=== PATIENT | female | born 1960 | race Caucasian/White ===

== ENCOUNTER 2017-03-20 07:45 | Emergency (ER) | payer OTHER ==
[2017-03-20] MEDS ORDERED: KETOROLAC 30 MG/ML 1 ML VIAL IVP STA (08:12)
[2017-03-20] MEDS ORDERED: METOCLOPRAMIDE 5 MG/ML 2 ML VIAL IVP STA (08:12)
--- NOTE | 2017-03-20 08:15 | ED ---
General Adult HPI - General Chief complaint: Abdominal Pain Stated complaint: Abd pain Time Seen by Provider: 03/20/17 08:09 Source: patient, RN notes reviewed Mode of arrival: ambulatory Limitations: no limitations - History of Present Illness Initial comments: Patient is a pleasant 57-year-old female presenting to the emergency department complaining of abdominal discomfort. Onset of symptoms was last night. Patient has been up most of the night with pain and vomiting. Patient still has some nausea. Patient has had some chills. No fever. Patient may have had similar symptoms a year ago however was short-lived. Discomfort is moderate. Discomfort is right upper quadrant and does radiate towards the back as well as epigastrium. Patient did have ice cream and macaroni and cheese prior to going to bed last night. - Related Data Home Medications Medication Instructions Recorded Confirmed Cholecalciferol [Vitamin D3] 1,000 unit PO DAILY 06/23/16 06/23/16 Glucosamine-Chondr 500-400Mg 1 tab PO DAILY 06/23/16 06/23/16 Multivitamins, Thera [Multivitamin] 1 tab PO DAILY 06/23/16 06/23/16 [place]-3 Fatty Acids/Fish Oil [Fish 1 cap PO DAILY 06/23/16 06/23/16 Oil 1,000 mg Softgel] Vitamin E 100 unit PO DAILY 06/23/16 06/23/16 Previous Rx's Medication Instructions Recorded Ibuprofen [Motrin] 600 mg PO Q8HR PRN #30 tab 06/23/16 Hydrocodone/Acetaminophen [[place] 2 each PO Q6HR PRN #20 tab 03/20/17 5-325] Ondansetron Odt [Zofran Odt] 4 mg PO Q8HR PRN #10 tab 03/20/17 Allergies Allergy/AdvReac Type Severity Reaction Status Date / Time Sulfa (Sulfonamide Allergy Rash/Hives Verified 03/20/17 07:49 Antibiotics) Review of Systems ROS Statement: Those systems with pertinent positive or pertinent negative responses have been documented in the HPI. ROS Other: All systems not noted in ROS Statement are negative. Constitutional: Reports: chills. Denies: fever Eyes: Denies: eye pain ENT: Denies: ear pain Respiratory: Denies: cough Cardiovascular: Denies: chest pain Endocrine: Denies: fatigue Gastrointestinal: Reports: abdominal pain, nausea, vomiting Genitourinary: Denies: dysuria Musculoskeletal: Denies: arthralgia Skin: Denies: rash Neurological: Denies: weakness Past Medical History Past Medical History: Hearing Disorder / Deafness, Hyperlipidemia, Hypertension History of Any Multi-Drug Resistant Organisms: None Reported Past Surgical History: Ear Surgery Additional Past Surgical History / Comment(s): oral surgery, plantar faciitis Past Psychological History: No Psychological Hx Reported Smoking Status: Never smoker Past Alcohol Use History: Occasional Past Drug Use History: None Reported General Exam Limitations: no limitations General appearance: alert, in no apparent distress Head exam: Present: atraumatic Eye exam: Present: normal appearance, PERRL ENT exam: Present: normal oropharynx Neck exam: Present: normal inspection Respiratory exam: Present: normal lung sounds bilaterally Cardiovascular Exam: Present: regular rate, normal rhythm Expanded Peripheral pulses: 2+: Dorsalis Pedis (R), Dorsalis Pedis (L) GI/Abdominal exam: Present: soft, tenderness (Right upper quadrant). Absent: distended, guarding, rebound, rigid Extremities exam: Present: normal inspection. Absent: pedal edema, calf tenderness Back exam: Present: normal inspection. Absent: tenderness, CVA tenderness (R) Neurological exam: Present: alert Psychiatric exam: Present: normal affect, normal mood Skin exam: Absent: rash Course Vital Signs 03/20/17 07:46 Temperature 98.2 F Pulse Rate 88 Respiratory 20 Rate Blood Pressure 168/94 O2 Sat by Pulse 98 Oximetry Medical Decision Making - Medical Decision Making Patient reevaluated and resting comfortably in bed. Patient states discomfort is only 3/10 and is comfortable with discharge. Case was discussed in detail with Dr. Jackson including ultrasound reports. He does feel comfortable discharging patient and will follow-up Wednesday. - Lab Data Result diagrams: 03/20/17 08:03 03/20/17 08:03 Lab Results 03/20/17 03/20/17 03/20/17 Range/Units 08:03 08:03 08:03 WBC 9.5 (3.8-10.6) k/uL RBC 5.10 (3.80-5.40) m/uL Hgb 14.9 (11.4-16.0) gm/dL Hct 45.9 (34.0-46.0) % MCV 90.0 (80.0-100.0) fL MCH 29.3 (25.0-35.0) pg MCHC 32.6 (31.0-37.0) g/dL RDW 13.3 (11.5-15.5) % Plt Count 281 (150-450) k/uL Neutrophils % 86 % Lymphocytes % 11 % Monocytes % 2 % Eosinophils % 0 % Basophils % 1 % Neutrophils # 8.2 H (1.3-7.7) k/uL Lymphocytes # 1.0 (1.0-4.8) k/uL Monocytes # 0.2 (0-1.0) k/uL Eosinophils # 0.0 (0-0.7) k/uL Basophils # 0.1 (0-0.2) k/uL PT 10.4 (9.0-12.0) sec INR 1.0 (<1.1) APTT 24.4 (22.0-30.0) sec Sodium 141 (137-145) mmol/L Potassium 4.1 (3.5-5.1) mmol/L Chloride 104 (98-107) mmol/L Carbon Dioxide 26 (22-30) mmol/L Anion Gap 11 mmol/L BUN 24 H (7-17) mg/dL Creatinine 1.20 H (0.52-1.04) mg/dL Est GFR (MDRD) Af Amer 57 (>60 ml/min/1.73 sqM) Est GFR (MDRD) Non-Af 47 (>60 ml/min/1.73 sqM) Glucose 137 H (74-99) mg/dL Calcium 9.7 (8.4-10.2) mg/dL Total Bilirubin 0.6 (0.2-1.3) mg/dL AST 19 (14-36) U/L ALT 29 (9-52) U/L Alkaline Phosphatase 52 (38-126) U/L Total Protein 8.1 (6.3-8.2) g/dL Albumin 4.7 (3.5-5.0) g/dL Amylase 95 (30-110) U/L Lipase 202 (23-300) U/L - Radiology Data Radiology results: report reviewed (Ultrasound does show evidence of gallstones. Possible cystic duct obstruction.), image reviewed (KUB shows no acute process) Disposition Clinical Impression: Cholecystitis Disposition: HOME SELF-CARE Condition: Stable Instructions: Cholecystitis (ED), Biliary Colic (ED) Additional Instructions: Please follow-up Wednesday with Dr. jackson. Return for fever, uncontrolled pain, uncontrolled vomiting, worsening symptoms or other concerns. Prescriptions: Hydrocodone/Acetaminophen [[place] 5-325] 2 each PO Q6HR PRN #20 tab PRN Reason: Pain Ondansetron Odt [Zofran Odt] 4 mg PO Q8HR PRN #10 tab PRN Reason: Nausea Referrals: Faustino Muniz MD [Primary Care Provider] - 1-2 days Niya Jackson MD [STAFF PHYSICIAN] - 1-2 days Time of Disposition: 10:38
[2017-03-20 08:55] LABS: Basophils # (A) 0.1 k/uL (0-0.2); Basophils % (A) 1 %; CHCM 33.5; Eosinophils % (A) 0 %; HCT 45.9 % (34.0-46.0); HDW 2.24; HGB 14.9 gm/dL (11.4-16.0); Luc # (Auto) 0.07; Luc % (Auto) 1; Lymphocytes % (A) 11 %; MCH 29.3 pg (25.0-35.0); MCHC 32.6 g/dL (31.0-37.0); Mean Platelet Volume 7.2; Monocytes # (A) 0.2 k/uL (0-1.0); Monocytes % (A) 2 %; Neutrophils # (A) 8.2 k/uL (1.3-7.7); Neutrophils % (A) 86 %; RDW 13.3 % (11.5-15.5); WBC 9.5 k/uL (3.8-10.6); WBC (Perox) 9.46
[2017-03-20 09:03] LABS: Calcium 9.7 mg/dL (8.4-10.2); Potassium 4.1 mmol/L (3.5-5.1); Total Bilirubin 0.6 mg/dL (0.2-1.3); Total Protein 8.1 g/dL (6.3-8.2)
[2017-03-20 09:05] LABS: Partial Thromboplastin Time 24.4 sec (22.0-30.0)
[2017-03-20 09:07] LABS: Prothrombin Time 10.4 sec (9.0-12.0)
--- NOTE | 2017-03-20 09:21 | US ---
EXAMINATION TYPE: US gallbladder DATE OF EXAM: 03/20/2017 8:53 AM COMPARISON: NONE CLINICAL HISTORY: Pain. in ER for ruq/epigastric pain; in active pain at the time of the exam; exam limitations due to pt's reduced ability to cooperate EXAM MEASUREMENTS: Liver Length: 16.7 cm Gallbladder Wall: 0.2 cm CBD: 0.5 cm Right Kidney: 9.1 x 3.7 x 4.5 cm Pancreas: head wnl, neck/body and tail gassed out Liver: There is some limited penetration of the liver by the ultrasound being, echotexture appears s omewhat coarse Gallbladder: seen with a 1.5cm shadowing stone adjacent to the gb neck; multiple changes in position --unable to move stone Evidence for sonographic Ge's sign: yes, very tender CBD: wnl Right Kidney: wnl There is no ascites IMPRESSION: Cholelithiasis, correlate for possible cystic duct obstruction. There may be fatty infilt ration of the liver. Some limitations in exam.
--- NOTE | 2017-03-20 09:52 | XR ---
Abdomen HISTORY: Abdominal pain Frontal view of the abdomen on 2 images No comparisons Lung bases are clear. There is no bowel obstruction or pneumoperitoneum. Probable phleboliths in the pelvis. Bone mineralization is normal. IMPRESSION: Nonobstructive bowel gas pattern
[2017-03-20 11:09] VITALS: BP 153/94; PULSE 100; RESP 16; TEMP 98.7
== END 2017-03-20 11:16 | disposition home or self-care (01) ==
LOC: EC 07:45
DX: K81.9 Cholecystitis, unspecified (principal); Z79.899 Other long term (current) drug therapy; Z88.2 Allergy status to sulfonamides
CPT/HCPCS: 36415; 80053; 82150; 83690; 85025; 85610; 85730; 74000; 76705; 99284; 96374; 96375; J2765; J1885

== ENCOUNTER → 2017-04-16 | Outpatient (CLI) | payer OTHER ==
[2017-04-16 13:11] LABS: ALT 29 U/L (9-52); AST 22 U/L (14-36); Alkaline Phosphatase 47 U/L (38-126); Anion Gap 9 mmol/L; Blood Urea Nitrogen 20 mg/dL (7-17); Calcium 9.6 mg/dL (8.4-10.2); Carbon Dioxide 28 mmol/L (22-30); Chloride 106 mmol/L (98-107); Glucose 91 mg/dL (74-99); Non-African American GFR(MDRD) 58 (>60 ml/min/1.73 sqM); Potassium 4.4 mmol/L (3.5-5.1); Sodium 143 mmol/L (137-145); Total Bilirubin 0.7 mg/dL (0.2-1.3); Total Protein 7.3 g/dL (6.3-8.2)
== END | disposition home or self-care (01) ==
LOC: LABWHC1 12:22
PROVIDERS: ATTEND Family Medicine
DX: E78.5 Hyperlipidemia, unspecified (principal)
CPT/HCPCS: 36415; 80053

== ENCOUNTER → 2017-05-24 | Outpatient (CLI) | payer OTHER ==
[2017-05-24 14:53] LABS: ALT 33 U/L (9-52); AST 20 U/L (14-36); Alkaline Phosphatase 46 U/L (38-126); Anion Gap 11 mmol/L; Blood Urea Nitrogen 20 mg/dL (7-17); Calcium 9.9 mg/dL (8.4-10.2); Carbon Dioxide 27 mmol/L (22-30); Chloride 103 mmol/L (98-107); Cholesterol 181 mg/dL (<200); Glucose 93 mg/dL (74-99); HDL Cholesterol 57 mg/dL (40-60); Non-African American GFR(MDRD) 52 (>60 ml/min/1.73 sqM); Potassium 4.2 mmol/L (3.5-5.1); Sodium 141 mmol/L (137-145); Total Bilirubin 0.9 mg/dL (0.2-1.3); Total Protein 7.5 g/dL (6.3-8.2); Triglycerides 119 mg/dL (<150)
== END | disposition home or self-care (01) ==
LOC: LABWHC1 13:51
PROVIDERS: ATTEND Family Medicine
DX: E78.5 Hyperlipidemia, unspecified (principal)
CPT/HCPCS: 36415; 80053; 80061

== ENCOUNTER → 2017-06-25 | Outpatient (CLI) | payer OTHER ==
--- NOTE | 2017-06-25 10:42 | US ---
EXAMINATION TYPE: US abdomen complete DATE OF EXAM: 06/25/2017 COMPARISON: US gallbladder Mar 20 2017 CLINICAL HISTORY: R10.9 ABD PAIN; on Liptor; LLQ pain. EXAM MEASUREMENTS: Liver Length: 16.8 cm Gallbladder Wall: 0.2 cm CBD: 0.3 cm Spleen: 8.9 cm Right Kidney: 10.5 x 5.3 x 3.3 cm Left Kidney: 9.8 x 5.0 x 4.7 cm Pancreas: Tail obscured by overlying bowel gas Liver: coarse appearance ?? Gallbladder: mobile, multiple and shadowing stones are noted Evidence for sonographic Ge's sign: No CBD: wnl Spleen: wnl Right Kidney: No hydronephrosis or masses seen Left Kidney: No hydronephrosis or masses seen Upper IVC: wnl Abd Aorta: wnl Visualized pancreas is within normal limits. Visualized liver is fairly homogeneous in appearance on images saved without intrahepatic mass or intrahepatic ductal dilatation. Gallstones are redemonstrat ed without abnormal surrounding fluid or wall thickening. IMPRESSION: Gallstones redemonstrated without secondary ultrasound evidence for acute cholecystitis.
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
== END | disposition home or self-care (01) ==
LOC: RADUSWWP 08:51
PROVIDERS: ATTEND Family Medicine
DX: K80.20 Calculus of gallbladder without cholecystitis without obstruction (principal); N83.8 Other noninflammatory disorders of ovary, fallopian tube and broad ligament
CPT/HCPCS: 76700; 76856

== ENCOUNTER 2019-02-02 13:43 | Emergency (ER) | payer OTHER ==
[2019-02-02 13:59] VITALS: BP 158/85; PULSE 107; RESP 18; TEMP 98.1
[2019-02-02] MEDS ORDERED: KETOROLAC 30 MG/ML 1 ML VIAL IM STA (14:18)
--- NOTE | 2019-02-02 14:24 | ED ---
Lower Extremity Injury HPI - General Chief Complaint: Extremity Injury, Lower Stated Complaint: Hip pain Time Seen by Provider: 02/02/19 14:07 Source: patient, RN notes reviewed, old records reviewed Mode of arrival: wheelchair Limitations: no limitations - History of Present Illness Initial Comments: Patient is a 58-year-old female who presents emergency department today for concerns of work-related hip injury. Patient reports that she had her work space decreased by 75%. 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 She does a lot of pivoting and turning toward the right.Patient complains of pain with sitting standing and lying down. Patient states that she's had no falls or trauma to her head. Patient states that she'll have pain radiating from the hip joint shooting down the lateral aspect of her leg. Patient denies any nausea or vomiting, saddle anesthesias. She denies any significant back pain. She reports symptoms started to be progressively worse over the past week. Patient states that she's been using warm and cold packs. She's been using Epsom salts soak baths. She states and Motrin occasionally. - Related Data Home Medications Medication Instructions Recorded Confirmed Cholecalciferol [Vitamin D3] 1,000 unit PO DAILY 06/23/16 02/02/19 Glucosamine-Chondr 500-400Mg 1 tab PO DAILY 06/23/16 02/02/19 [place]-3 Fatty Acids/Fish Oil [Fish 1 cap PO DAILY 06/23/16 02/02/19 Oil 1,000 mg Softgel] Vitamin E 100 unit PO DAILY 06/23/16 02/02/19 Ibuprofen [Motrin Ib] 400 mg PO Q6H PRN 02/02/19 02/02/19 Previous Rx's Medication Instructions Recorded Cyclobenzaprine [Flexeril] 10 mg PO TID #15 tab 02/02/19 Dexamethasone 0.75 mg PO DAILY #12 tab 02/02/19 Ketorolac [Toradol] 10 mg PO Q6HR #12 tab 02/02/19 Allergies Allergy/AdvReac Type Severity Reaction Status Date / Time Sulfa (Sulfonamide Allergy Rash/Hives Verified 02/02/19 14:32 Antibiotics) Review of Systems ROS Statement: Those systems with pertinent positive or pertinent negative responses have been documented in the HPI. ROS Other: All systems not noted in ROS Statement are negative. Past Medical History Past Medical History: Hearing Disorder / Deafness, Hyperlipidemia, Hypertension History of Any Multi-Drug Resistant Organisms: None Reported Past Surgical History: Ear Surgery Additional Past Surgical History / Comment(s): oral surgery, plantar faciitis Past Psychological History: No Psychological Hx Reported Smoking Status: Never smoker Past Alcohol Use History: Occasional Past Drug Use History: None Reported General Exam - General Exam Comments Initial Comments: This is a 58-year-old female. Alert and oriented 3. Patient appears in no significant distress. General: Well appearing, well nourished, in no distress. Oriented x 3, normal mood and affect . Ambulating without difficulty. Skin: Good turgor, no rash, unusual bruising or prominent lesions Hair: Normal texture and distribution. HEENT: Head: Normocephalic, atraumatic, no visible or palpable masses, depressions, or scaring. Eyes: Visual acuity intact, conjunctiva clear, sclera non-icteric, EOM intact, PERRL. Ears: EACs clear, TMs translucent & cone of light visualized. hearing intact. Nose: No external lesions, mucosa non-inflamed, septum and turbinates normal Mouth: Mucous membranes moist, no mucosal lesions. Teeth/Gums: No obvious caries or periodontal disease. No gingival inflammation or significant resorption. Pharynx: Mucosa non-inflamed, no tonsillar hypertrophy or exudate Neck: Supple, without lesions, bruits, or adenopathy, thyroid non-enlarged and non-tender Heart: No cardiomegaly or thrills; regular rate and rhythm, no murmur or gallop Lungs: Clear to auscultation and percussion Abdomen: Bowel sounds normal, no tenderness, organomegaly, masses, or hernia Back: Spine normal without deformity or tenderness, no CVA tenderness Extremities: No amputations or deformities,. Patient has tenderness over the right hip and psoas muscles. Patient reports peripheral paresthesias over the lateral aspect of the right lower leg. She has normal pulses. Full range of motion of the knee and hip. Patient reports pain with abduction of the hip. Musculoskeletal: Normal gait and station. No misalignment, asymmetry, crepitation, defects, tenderness, masses, effusions, decreased range of motion, instability, atrophy or abnormal strength or tone in the head, neck, spine, ribs, pelvis or extremities. Neurologic: CN 2-12 normal. Sensation to pain, touch, and proprioception normal. DTRs normal in upper and lower extremities. No pathologic reflexes. Limitations: no limitations Course Vital Signs 02/02/19 13:56 Temperature 98.1 F Pulse Rate 107 H Respiratory 18 Rate Blood Pressure 158/85 O2 Sat by Pulse 99 Oximetry Medical Decision Making - Medical Decision Making 58-year-old female presents emergency department today with complaints of right hip pain likely related to work. She states she does a lot of bending and turni ng at work. She complains of spasming sensation within her buttocks muscles and radiating down her right leg. Patient has full range of motion of the hip. She reports some pain with abduction. She is tenderness over the piriformis and buttocks muscle. Discussed likely having piriformis syndrome causing immediate pressure on the sciatic nerve. Patient had x-rays of her right hip and pelvis. Is negative for any acute process. No significant arthritic changes. Evidence of bone island with left ilium. Patient informed of x-ray results. She is given IM Toradol. At this time Patient be discharged with prescription for steroid muscle relaxer and anti-inflammatory medicine. Discussed he needs help with [facility] and orthopedic. Discussed return parameters. - Radiology Data Radiology results: report reviewed No acute fracture dislocation the pelvis or hip. Probable bone island and left ilium. Follow-up is indicated. Disposition Clinical Impression: Strain of right hip, Piriformis syndrome of right side Disposition: HOME SELF-CARE Condition: Good Instructions (If sedation given, give patient instructions): Piriformis Syndrome (ED) Additional Instructions: Patient was felt with primary care physician, orthopedic physician and [facility]. Patient should take the temperature medicine and muscle relaxers prescribed. Return to the emergency department if any alarming signs or symptoms occur. Prescriptions: Dexamethasone 0.75 mg PO DAILY #12 tab Cyclobenzaprine [Flexeril] 10 mg PO TID #15 tab Ketorolac [Toradol] 10 mg PO Q6HR #12 tab Is patient prescribed a controlled substance at d/c from ED?: No Referrals: Faustino Muniz MD [Primary Care Provider] - 1-2 days Jewel Faust DO [Medical Doctor] - 1-2 days Time of Disposition: 15:09
--- NOTE | 2019-02-02 15:05 | XR ---
EXAMINATION TYPE: XR Hip RT and AP Pelvis DATE OF EXAM: 02/02/2019 COMPARISON: NONE HISTORY: Right hip pain TECHNIQUE: A single AP view of the pelvis is obtained. Two views of the right hip are obtained. FINDINGS: There is no acute fracture/dislocation evident in the pelvis. The hip and sacroiliac join ts appear symmetric and unremarkable. The overlying soft tissue appears unremarkable. Sclerotic focu s present in the left ilium. Two views of right hip show no acute fracture or dislocation. No focal lytic or sclerotic lesion see n in the proximal right femur. The overlying soft tissue is unremarkable. IMPRESSION: There is no acute fracture or dislocation in the pelvis or right hip. Probable bone yaritza nd left ilium, follow-up as indicated
== END 2019-02-02 15:34 | disposition home or self-care (01) ==
LOC: EC 13:43
DX: S76.011A Strain of muscle, fascia and tendon of right hip, initial encounter (principal); G57.01 Lesion of sciatic nerve, right lower limb; Z88.2 Allergy status to sulfonamides; X50.9XXA Other and unspecified overexertion or strenuous movements or postures, initial encounter; Y92.69 Other specified industrial and construction area as the place of occurrence of the external cause; Y99.0 Civilian activity done for income or pay
CPT/HCPCS: 73502; 96372; 99284